=== PATIENT | male | born 1945 | race Caucasian/White ===

== ENCOUNTER 2017-03-06 07:02 | Inpatient (IN) | payer OTHER ==
[~2017-03-06] VITALS: Ht 167.6 cm; Wt 75.3 kg
[2017-03-06 07:32] LABS: EOSINOPHIL COUNT 0.1 K/uL (0-0.3); HEMATOCRIT 39.6 % (38.0-50.0); IMMATURE GRANULOCYTE (%) 0.3 % (0.0-0.7); INSTRUMENT ABS NEUTROPHIL CT 3.7 K/uL; LYMPHOCYTE COUNT 1.6 K/uL (1.0-2.8); MCH 28.6 PG (29.0-34.0); MCHC 33.3 G/DL (30.0-36.0); MCV 85.7 FL (86-99); MONOCYTE (%) 13.3 % (3-12); MONOCYTE COUNT 0.8 K/uL (0-0.8); NEUTROPHIL (%) 59.5 % (45-76); NEUTROPHIL COUNT 3.7 K/uL (1.8-6.4); PLATELET COUNT 201 K/uL (156-360); RBC DIS.WIDTH-CV 15.2 % (11.8-14.6); RBC DIS.WIDTH-SD 47.9 % (39-53); RED BLOOD COUNT 4.62 M/uL (4.00-5.50); WHITE BLOOD COUNT 6.2 K/uL (4.1-10.2)
[2017-03-06 07:47] LABS: CHLORIDE 101 mEq/L (99-109); POTASSIUM 3.8 mEq/L (3.7-5.4); SODIUM 138 mEq/L (136-147)
[2017-03-06 07:53] LABS: GLUCOSE 273 mg/dL (70-99)
[2017-03-06 07:54] LABS: ANION GAP 12 MEQ/L (2-14)
[2017-03-06 07:55] LABS: TOTAL BILIRUBIN 0.6 mg/dL (0.0-1.0)
[2017-03-06 07:56] LABS: ALKALINE PHOSPHATASE 55 IU/L (3-129); TROP-I INTERPRETATION NEGATIVE; TROPONIN-I 0.22 ng/mL (0.0-0.30)
[2017-03-06 07:57] LABS: GFR ESTIMATE (CALCULATED) 58 mL/min/
[2017-03-06 07:58] LABS: UREA NITROGEN (BUN) 15 mg/dL (9-23)
[2017-03-06 09:29] LABS: CREATINE KINASE 52 IU/L (1-294)
[2017-03-06 09:47] LABS: TROP-I INTERPRETATION NEGATIVE; TROPONIN-I 0.18 ng/mL (0.0-0.30)
[2017-03-06] MEDS ORDERED: TAZTIA XT360 MG PO (09:49)
[2017-03-06] MEDS ORDERED: METFORMIN HCL1000 MG PO (09:50)
[2017-03-06] MEDS ORDERED: SIMVASTATIN20 MG PO (09:50)
[2017-03-06] MEDS ORDERED: HYDROCHLOROTHIA25 MG PO (09:50)
[2017-03-06] MEDS ORDERED: FOSINOPRIL SODI20 MG PO (09:50)
[2017-03-06] MEDS ORDERED: ASPIR-LOW81 MG PO (09:51)
[2017-03-06] MEDS ORDERED: CLOPIDOGREL75 MG PO (09:51)
[2017-03-06] MEDS ORDERED: ACARBOSE25 MG PO (09:52)
[2017-03-06] MEDS ORDERED: NOVOLIN,HU100 UNITS/ SC ×2 (09:52)
[2017-03-06 09:56] LABS: ADD MIUA? YES; BILIRUBIN NEGATIVE; BLOOD MODERATE; COLOR STRAW ((YELLOW)); GLUCOSE (STRIP) >=500; KETONES NEGATIVE; LEUKOCYTES NEGATIVE; NITRITE NEGATIVE; PROTEIN (STRIP) NEGATIVE; SPECIFIC GRAVITY 1.006 (1.000-1.030); UROBILINOGEN 0.2 MG/DL (0.2-1.0)
[2017-03-06 10:07] LABS: BACTERIA RARE /HPF; EPITHELIAL CELLS NONE SEEN /HPF; HYALINE CASTS 0-5 /LPF; MUCUS TRACE /LPF; RED BLOOD CELLS 20-30 /HPF (0-5); UCUL ADDED? NO; WHITE BLOOD CELLS 0-5 /HPF (0-5)
[2017-03-06 11:53] LABS: INTER. NORMALIZED RATIO 1.1; PROTHROMBIN TIME 12.1 SEC (10.2-12.9)
[2017-03-06 12:05] LABS: PTT 27.4 SEC (25-37)
[2017-03-06 14:00] LABS: HDL CHOLESTEROL 27 MG/DL (Desirable>=40); LDL CHOLESTEROL 44 mg/dL (Desirable<100); NON-HDL CHOLESTEROL 75 mg/dL (Desirable<160); TOTAL CHOLESTEROL 102 mg/dL (Desirable<200); TRIGLYCERIDES 155 MG/DL (Normal: <150)
[2017-03-06 15:21] LABS: Estimated Average Glucose 249 mg/dL (70-123); HEMOGLOBIN A1c (GLYCOHEMOGLOB) 10.3 % HGB (Below 5.7)
[2017-03-06 15:29] VITALS: BP 128/66
[2017-03-06 20:13] VITALS: BP 133/70
[2017-03-06 23:50] VITALS: BP 105/51
[2017-03-07 03:37] VITALS: BP 131/75
[2017-03-07 06:23] LABS: HEMATOCRIT 38.1 % (38.0-50.0); MCH 28.3 PG (29.0-34.0); MCHC 33.1 G/DL (30.0-36.0); MCV 85.6 FL (86-99); MEAN PLAT.VOLUME 9.7 uM^3 (9.0-12.4); PLATELET COUNT 197 K/uL (156-360); RBC DIS.WIDTH-CV 15.3 % (11.8-14.6); RBC DIS.WIDTH-SD 47.9 % (39-53); RED BLOOD COUNT 4.45 M/uL (4.00-5.50)
[2017-03-07 07:00] LABS: ANION GAP 10 MEQ/L (2-14); CHLORIDE 103 MEQ/L (99-109); GFR ESTIMATE (CALCULATED) > 59 mL/min/; GLUCOSE 261 mg/dL (70-99); POTASSIUM 4.1 MEQ/L (3.7-5.4); SAMPLE HEMOLYSIS CHECK 0; SAMPLE ICTERIC CHECK 0; SAMPLE LIPEMIA CHECK 0; SODIUM 138 MEQ/L (136-147); UREA NITROGEN (BUN) 14 mg/dL (9-23)
[2017-03-07 07:22] LABS: POINT-OF-CARE METER ID UU14188625
[2017-03-07 07:42] VITALS: BP 146/79
[2017-03-07 11:09] LABS: POINT-OF-CARE METER ID UU14188625
[2017-03-07 11:11] VITALS: BP 159/71
[2017-03-07 15:11] VITALS: BP 118/58
[2017-03-07 16:39] LABS: POINT-OF-CARE METER ID UU14188625
[2017-03-07 19:18] VITALS: BP 129/60
[2017-03-07 21:44] LABS: POINT-OF-CARE METER ID UU14188625
[2017-03-08] VITALS: BP 137/69
[2017-03-08 04:04] VITALS: BP 111/53
[2017-03-08 05:45] LABS: EOSINOPHIL (%) 2.4 % (0-5); EOSINOPHIL COUNT 0.1 K/uL (0-0.3); HEMATOCRIT 34.3 % (38.0-50.0); IMMATURE GRANULOCYTE (%) 0.2 % (0.0-0.7); INSTRUMENT ABS NEUTROPHIL CT 2.7 K/uL; LYMPHOCYTE COUNT 2.1 K/uL (1.0-2.8); MCH 29.7 PG (29.0-34.0); MCHC 34.1 G/DL (30.0-36.0); MCV 87.1 FL (86-99); MEAN PLAT.VOLUME 10.1 uM^3 (9.0-12.4); MONOCYTE (%) 14.4 % (3-12); MONOCYTE COUNT 0.8 K/uL (0-0.8); NEUTROPHIL (%) 46.5 % (45-76); NEUTROPHIL COUNT 2.7 K/uL (1.8-6.4); PLATELET COUNT 190 K/uL (156-360); RBC DIS.WIDTH-CV 15.3 % (11.8-14.6); RBC DIS.WIDTH-SD 48.9 % (39-53); RED BLOOD COUNT 3.94 M/uL (4.00-5.50); WHITE BLOOD COUNT 5.8 K/uL (4.1-10.2)
[2017-03-08 06:13] LABS: ANION GAP 8 MEQ/L (2-14); CHLORIDE 104 MEQ/L (99-109); GFR ESTIMATE (CALCULATED) > 59 mL/min/; GLUCOSE 246 mg/dL (70-99); SAMPLE HEMOLYSIS CHECK 0; SAMPLE ICTERIC CHECK 0; SAMPLE LIPEMIA CHECK 0; SODIUM 137 MEQ/L (136-147); UREA NITROGEN (BUN) 20 mg/dL (9-23)
[2017-03-08 07:40] VITALS: BP 141/71
[2017-03-08 07:56] LABS: POINT-OF-CARE METER ID UU14188625
[2017-03-08 11:14] LABS: POINT-OF-CARE METER ID UU14188625
[2017-03-08 11:15] VITALS: BP 136/71
[2017-03-08] MEDS ORDERED: TYLENOL REGULA325 MG PO (11:37)
[2017-03-08] MEDS ORDERED: FAMOTIDINE20 MG PO (11:38)
[2017-03-08] MEDS ORDERED: DOCUSATE SODIU100 MG PO (11:38)
[2017-03-08] MEDS ORDERED: NOVOLIN,HU100 UNITS/ SC (11:41)
== END 2017-03-08 13:18 | disposition home or self-care (01) | DRG 65 ==
LOC: EME 07:02 → EDOF 10:32 → 5SOUTH 14:23
PROVIDERS: Family Medicine Sports Medicine; Physician Assistant
DX: I63.511 Cerebral infarction due to unspecified occlusion or stenosis of right middle cerebral artery (principal); W06.XXXA Fall from bed, initial encounter; I25.10 Atherosclerotic heart disease of native coronary artery without angina pectoris; G81.94 Hemiplegia, unspecified affecting left nondominant side; E78.5 Hyperlipidemia, unspecified; I10 Essential (primary) hypertension; E11.9 Type 2 diabetes mellitus without complications; Z86.73 Personal history of transient ischemic attack (TIA), and cerebral infarction without residual deficits; Z79.82 Long term (current) use of aspirin; I25.2 Old myocardial infarction; Z95.1 Presence of aortocoronary bypass graft; Z87.891 Personal history of nicotine dependence; S60.416A Abrasion of right little finger, initial encounter
CPT/HCPCS: 70450; 70551; 74230; 80048; 80053; 80061; 81003; 82550 91; 82948; 83036; 84484; 85025; 85027; 85610; 85730; 86140; 92611 GN; 93005; 93306; 99281; 99285; J1815; J7030; J7120